=== PATIENT | female | born 1970 | race African-American/Black ===

== ENCOUNTER 2025-01-20 16:17 | Emergency (ER) | payer MEDICAID ==
[~2025-01-20] VITALS: Ht 147.3 cm; Wt 55.0 kg
[2025-01-20 16:23] VITALS: TEMP 36.9; O2SAT 99
[2025-01-20 17:43] LABS: BASOPHILS % 0.9 % (0.0-2.0); EOSINOPHILS % 1.5 % (0.0-5.0); HEMATOCRIT. 35.3 % (36.0-48.0); HEMOGLOBIN. 11.8 g/dL (12.0-16.0); LYMPHOCYTES % 38.1 % (20.0-50.0); MEAN CORPUSCULAR HEMOGLOBIN 28.2 pg (28.0-32.0); MEAN CORPUSCULAR HGB CONC 33.4 g/dL (31.0-37.0); MEAN CORPUSCULAR VOLUME 84.5 fL (81.0-99.0); MEAN PLATELET VOLUME 9.9 fl (7.4-10.4); MONOCYTES % 6.2 % (2.0-8.0); NEUTROPHILS % 53.3 % (40.0-76.0); PLATELET 270 x1000/uL (130-400); RED BLOOD CELL COUNT 4.17 mill/uL (4.2-5.4); RED CELL DISTRIBUTION WIDTH 13.4 % (11.6-14.6); WHITE BLOOD COUNT 8.8 x1000/uL (4.5-11.0)
[2025-01-20 17:49] LABS: CHLORIDE 107 mEq/L (98-107); POTASSIUM 3.1 mEq/L (3.5-5.1); SODIUM 140 mEq/L (136-145)
[2025-01-20 17:50] LABS: CARBON DIOXIDE 26 mEq/L (21-32)
[2025-01-20 17:51] LABS: CALCIUM 8.9 mg/dL (8.7-10.4)
[2025-01-20 17:55] LABS: CREATININE 0.9 mg/dL (0.6-1.0); GLUCOSE 94 mg/dL (70-105); UREA NITROGEN BLOOD 8 mg/dL (9-23)
[2025-01-20] MEDS: SODIUM CHLORIDE 0.9% 1,000 ML IV ONE (18:14)
[2025-01-20] MEDS: LEVETIRACETAM 1000MG PREMIX 100 ML IV ONE (18:14)
[2025-01-20] MEDS: POTASSIUM CHLORIDE 20MEQ TABLET SR PO SCH (18:47)
[2025-01-20 19:48] VITALS: BP 135/101; PULSE 81; RESP 10; O2SAT 99
[2025-01-20 19:55] LABS: PROTHROMBIN TIME 10.4 sec (9.6-11.0)
== END 2025-01-20 21:48 | disposition home or self-care (01) ==
LOC: ER 16:17
DX: G40.909 Epilepsy, unspecified, not intractable, without status epilepticus (principal); E87.6 Hypokalemia
CPT/HCPCS: 99284; 96365; 80048; 85025; 85610; 36415; J1953; J7030